=== PATIENT | female | born 1995 | race Caucasian/White ===

== ENCOUNTER 2018-07-20 03:25 | Emergency (ER) | payer OTHER ==
[~2018-07-20] VITALS: Ht 154.9 cm; Wt 65.8 kg
[2018-07-20 03:34] VITALS: BP 141/83
[2018-07-20] MEDS ORDERED: cefTRIAXone SOD 1,000 MG VL IM ONE (04:30)
[2018-07-20] MEDS ORDERED: IPRATROPIUM BROM 0.5 MG/2.5ML INH SOL NEB ONE (04:30)
== END 2018-07-20 05:11 | disposition home or self-care (01) ==
LOC: ER 03:26
DX: O99.512 Diseases of the respiratory system complicating pregnancy, second trimester (principal); J40 Bronchitis, not specified as acute or chronic; Z3A.27 27 weeks gestation of pregnancy
CPT/HCPCS: 94640; 96372; 99283; J0696; J7644